=== PATIENT | female | born 1970 | race Caucasian/White ===

== ENCOUNTER 2017-01-02 07:39 | Outpatient (CLI) | payer OTHER ==
[2017-01-02 08:44] LABS: BASOPHILS % (AUTO) 0.5 % (0.0-2.0); EOSINOPHILS # (AUTO) 0.3 K/uL (0.0-0.4); EOSINOPHILS % (AUTO) 4.9 % (0.0-4.0); HEMATOCRIT 43.3 % (36-48); HEMOGLOBIN 14.3 g/dL (12.0-16.0); LYMPHOCYTES # (AUTO) 1.7 K/uL (1.0-5.5); LYMPHOCYTES % (AUTO) 30.8 % (20.5-51.5); MEAN CORPUSCULAR HEMOGLOBIN 30 pg (27-31); MEAN CORPUSCULAR HGB CONC 33 % (32-36); MEAN CORPUSCULAR VOLUME 91 fL (79.0-98.0); MONOCYTES # (AUTO) 0.2 K/uL (0.0-1.0); MONOCYTES % (AUTO) 4.5 % (1.7-9.3); NEUTROPHILS # (AUTO) 3.3 K/uL (1.8-7.7); NEUTROPHILS % (AUTO) 59.3 % (40.0-70.0); PLATELET COUNT (AUTO) 286 K/uL (130-430); RED BLOOD CELL COUNT(AUTO) 4.75 MIL/uL (4.2-6.2); RED CELL DISTRIBUTION WIDTH 12.1 % (9.0-15.0); WHITE BLOOD COUNT (AUTO) 5.5 K/uL (4.8-10.8)
[2017-01-02 09:12] LABS: ALANINE AMINOTRANSFERASE 17 U/L (12-78); ALBUMIN 4.3 g/dL (3.4-4.8); ANION GAP 3 (5-15); ASPARTATE AMINOTRANSFERASE 14 U/L (10-37); CALCIUM 8.8 mg/dL (8.4-11.0); CHLORIDE 105 mmol/L (98-107); CHOLESTEROL 230 mg/dL (<200); CREATININE 0.71 mg/dL (0.55-1.30); GLUCOSE 95 mg/dL (70-99); HDL CHOLESTEROL 53 mg/dL (>55); LDL CHOLESTEROL 171 mg/dL (<100); POTASSIUM 3.7 mmol/L (3.5-5.1); SODIUM SERUM 135 mmol/L (136-145); THYROID STIMULATING HORMONE 1.76 uIu/mL (0.34-4.82); TOTAL BILIRUBIN 0.4 mg/dL (0.0-1.0); TRIGLYCERIDES 77 mg/dL (30-150); UREA NITROGEN, BLOOD 13 mg/dL (8-21)
[2017-01-02 09:13] LABS: GFR AFRICAN AMERICAN 115 mL/min (>90)
[2017-01-02 09:14] LABS: C-REACTIVE PROTEIN QUANT < 0.2 mg/dL (0-0.5)
[2017-01-02 10:13] LABS: ERYTHROCYTE SEDIMENTATION RATE 7 MM/HR (0-20)
[2017-01-03 06:11] LABS: RA LATEX TURBID <10.0 IU/mL (0.0-13.9)
[2017-01-03 11:07] LABS: HEMOGLOBIN A1C 5.6 % (4.8-5.6)
[2017-01-03 20:15] LABS: ANTI NUCLEAR AB WITH REFLEX Negative (Negative)
== END 2017-01-02 16:00 | disposition home or self-care (01) ==
LOC: SLB 07:39
PROVIDERS: ATTEND Internal Medicine
DX: Z00.00 Encounter for general adult medical examination without abnormal findings (principal)
CPT/HCPCS: 36415; 80053; 80061; 82306; 82607; 83036; 83735-TC; 84443-TC; 84550-TC; 85025; 85651-TC; 86038; 86140; 86431

== ENCOUNTER 2018-01-10 12:08 | Outpatient (CLI) | payer OTHER | END 2018-01-10 20:14 | disposition home or self-care (01) | LOC: SMI 12:08 | PROVIDERS: ATTEND Internal Medicine | DX: Z12.31 Encounter for screening mammogram for malignant neoplasm of breast (principal); M43.16 Spondylolisthesis, lumbar region; M47.897 Other spondylosis, lumbosacral region; N85.4 Malposition of uterus | CPT/HCPCS: 72148; 72170-TC; 73502; 76830-TC; 76857; 77067 ==

== ENCOUNTER 2019-04-23 10:30 | Outpatient (CLI) | payer OTHER | END 2019-04-23 20:39 | disposition home or self-care (01) | LOC: SMA 10:30 | PROVIDERS: ATTEND Specialist | DX: Z12.31 Encounter for screening mammogram for malignant neoplasm of breast (principal) | CPT/HCPCS: 77067 ==

== ENCOUNTER 2021-12-08 12:00 | Outpatient (CLI) | payer OTHER | END 2021-12-08 21:03 | disposition home or self-care (01) | LOC: SMA 12:00 | PROVIDERS: ATTEND Specialist | DX: Z12.31 Encounter for screening mammogram for malignant neoplasm of breast (principal) | CPT/HCPCS: 77067 ==